=== PATIENT | male | born 1955 | race Caucasian/White ===

== ENCOUNTER 2023-07-23 08:25 | Inpatient (IN) ==
[2023-07-23] MEDS ORDERED: IOPAMIDOL 100 ML BOTTLE IV ONE (08:26)
[2023-07-23] MEDS ORDERED: ONDANSETRON 4 MG/2 ML VIAL IV ONE ×2 (09:11→12:06)
[2023-07-23] MEDS ORDERED: morphine 4 MG/ML VIAL IV ONE ×2 (09:11→12:06)
[2023-07-23] MEDS ORDERED: 0.9 % SODIUM CHLORIDE 1,000 ML IV ONE (09:12)
[2023-07-23 10:07] LABS: Basophils # (Auto) 0.02 K/mcL (0.00-0.30); Basophils % (Auto) 0.1 % (0.0-2.0); Eosinophils # (Auto) 0.01 K/mcL (0.00-0.70); Eosinophils % (Auto) 0 % (0.0-7.0); Hematocrit 44.5 % (40.1-51.0); Hemoglobin 15.2 g/dL (13.7-17.5); Lymphocytes # (Auto) 0.51 K/mcL (1.50-4.80); Lymphocytes % (Auto) 2.5 % (15.5-49.0); Mean Cell Volume 92.7 fL (80.0-100.0); Mean Corpuscular HGB Conc 34.2 g/dL (31.0-36.0); Mean Platelet Volume 9.6 fL (8.8-12.5); Monocytes # (Auto) 1.45 K/mcL (0.10-0.90); Monocytes % (Auto) 7.2 % (1.0-12.0); Neutrophils % (Auto) 89.7 % (38.0-78.0); Platelet Count 217 K/mcL (140-440); Red Cell Distribution Width 12.6 % (11.5-14.5); WBC 20.3 K/mcL (4.5-11.0)
[2023-07-23 10:17] LABS: ALT/SGPT 18 U/L (<40); AST/SGOT 19 U/L (<40); Albumin 4.1 gm/dL (3.2-5.2); Albumin/Globulin Ratio 1.2 (1.0-2.3); Alkaline Phosphatase 73 U/L (39-117); Bilirubin,Total 0.9 mg/dL (0.1-1.0); Blood Urea Nitrogen 14 mg/dL (8-23); Calcium 9.2 mg/dL (8.6-10.4); Carbon Dioxide 23 mmol/L (22-30); Chloride 102 mmol/L (96-108); Globulin 3.3 gm/dL (2.2-3.7); Glomerular Filtration Rate 91; Glucose 129 mg/dL (70-105)
[2023-07-23 11:24] LABS: Appearance,Urine Clear (Clear); Bilirubin,Urine Small mg/dL (Negative); Color,Urine Amber; Culture Indicated,Urine No; Glucose,Urine (UA) Negative (Negative); Ketones,Urine 40 mg/dL (Negative); Leukocyte Esterase,Urine Negative /uL (Negative); Mucus,Urine Many /hpf; Nitrate,Urine Negative (Negative); Protein,Urine Trace mg/dL (Negative); Specific Gravity,Urine >= 1.030 (1.000-1.035); Urine Blood Negative ery/mcL (Negative); Urine RBC 0 /hpf (0-3); Urine Squamous Epithelial Cell 0 /hpf (0-4); Urine WBC 0 /hpf (0-4); Urobilinogen,Urine 0.2 mg/dL
[2023-07-23] MEDS ORDERED: PIPERACILLIN SODIUM/TAZOBACTAM 3.375 GM in DEXTROSE 5% IN WATER 50 ML IV ONE (11:43)
[2023-07-23] MEDS ORDERED: ACETAMINOPHEN 325 MG TABLET PO PRN (13:32)
[2023-07-23] MEDS ORDERED: LACTATED RINGERS 1,000 ML IV SCH (13:45)
[2023-07-23] MEDS: 0.9 % SODIUM CHLORIDE 1,000 ML IV SCH ×2 (15:05→22:25)
[2023-07-23] MEDS: HYDROmorphone 0.5 MG/0.5 ML SYRINGE IV PRN ×2 (15:05→22:34)
[2023-07-23] MEDS: 0.9 % SODIUM CHLORIDE 10 ML SYRINGE IV SCH ×2 (15:06→22:27)
[2023-07-23] MEDS: PIPERACILLIN SODIUM/TAZOBACTAM 3.375 GM in DEXTROSE 5% IN WATER 100 ML IV SCH ×2 (16:19→23:42)
[2023-07-23] MEDS: ACETAMINOPHEN 1,000 MG/100 ML BAG IV PRN (17:56)
[2023-07-23] MEDS ORDERED: SENNOSIDES 1 TABLET PO SCH (21:00)
[2023-07-23] MEDS ORDERED: DOCUSATE SODIUM 100 MG CAPSULE PO SCH (21:00)
[2023-07-24] MEDS: 0.9 % SODIUM CHLORIDE 1,000 ML IV SCH ×6 (03:47→20:14)
[2023-07-24] MEDS: HYDROmorphone 0.5 MG/0.5 ML SYRINGE IV PRN ×3 (03:48→20:14)
[2023-07-24] MEDS: ACETAMINOPHEN 1,000 MG/100 ML BAG IV PRN ×2 (03:48→16:09)
[2023-07-24] MEDS: 0.9 % SODIUM CHLORIDE 10 ML SYRINGE IV SCH ×3 (04:57→20:17)
[2023-07-24 05:22] LABS: Basophils # (Auto) 0.02 K/mcL (0.00-0.30); Basophils % (Auto) 0.1 % (0.0-2.0); Eosinophils # (Auto) 0 K/mcL (0.00-0.70); Eosinophils % (Auto) 0 % (0.0-7.0); Hematocrit 40.5 % (40.1-51.0); Hemoglobin 13.3 g/dL (13.7-17.5); Lymphocytes # (Auto) 0.62 K/mcL (1.50-4.80); Lymphocytes % (Auto) 3.2 % (15.5-49.0); Mean Corpuscular HGB Conc 32.8 g/dL (31.0-36.0); Mean Platelet Volume 9.5 fL (8.8-12.5); Monocytes # (Auto) 0.64 K/mcL (0.10-0.90); Monocytes % (Auto) 3.3 % (1.0-12.0); Neutrophils % (Auto) 92.7 % (38.0-78.0); Platelet Count 181 K/mcL (140-440); RBC 4.22 M/mcL (4.63-6.08); WBC 19.7 K/mcL (4.5-11.0)
[2023-07-24 05:30] LABS: ALT/SGPT 11 U/L (<40); AST/SGOT 14 U/L (<40); Albumin 3.3 gm/dL (3.2-5.2); Albumin/Globulin Ratio 1.1 (1.0-2.3); Alkaline Phosphatase 59 U/L (39-117); Bilirubin,Direct 0.4 mg/dL (<0.3); Blood Urea Nitrogen 15 mg/dL (8-23); Calcium 8.3 mg/dL (8.6-10.4); Carbon Dioxide 22 mmol/L (22-30); Chloride 100 mmol/L (96-108); Glomerular Filtration Rate 87; Glucose 135 mg/dL (70-105); Lactate Dehydrogenase 112 U/L (135-225); Triglycerides 75 mg/dL (<150); Uric Acid 3.6 mg/dL (2.5-8.0)
[2023-07-24] MEDS: PIPERACILLIN SODIUM/TAZOBACTAM 3.375 GM in DEXTROSE 5% IN WATER 100 ML IV SCH ×3 (08:00→23:45)
[2023-07-25] MEDS: 0.9 % SODIUM CHLORIDE 1,000 ML IV SCH ×4 (00:28→12:58)
[2023-07-25] MEDS: ACETAMINOPHEN 1,000 MG/100 ML BAG IV PRN ×2 (03:15→15:41)
[2023-07-25] MEDS: ONDANSETRON 4 MG/2 ML VIAL IV PRN ×2 (03:45→16:51)
[2023-07-25] MEDS: 0.9 % SODIUM CHLORIDE 10 ML SYRINGE IV SCH ×3 (04:20→20:24)
[2023-07-25 07:18] LABS: Basophils # (Auto) 0.01 K/mcL (0.00-0.30); Basophils % (Auto) 0.1 % (0.0-2.0); Eosinophils # (Auto) 0.02 K/mcL (0.00-0.70); Eosinophils % (Auto) 0.1 % (0.0-7.0); Hematocrit 38.5 % (40.1-51.0); Hemoglobin 12.7 g/dL (13.7-17.5); Lymphocytes # (Auto) 0.39 K/mcL (1.50-4.80); Lymphocytes % (Auto) 2.8 % (15.5-49.0); Mean Cell Volume 94.6 fL (80.0-100.0); Mean Platelet Volume 9.7 fL (8.8-12.5); Monocytes # (Auto) 0.39 K/mcL (0.10-0.90); Monocytes % (Auto) 2.8 % (1.0-12.0); Neutrophils % (Auto) 93.7 % (38.0-78.0); Platelet Count 183 K/mcL (140-440); RBC 4.07 M/mcL (4.63-6.08); Red Cell Distribution Width 12.8 % (11.5-14.5); WBC 13.9 K/mcL (4.5-11.0)
[2023-07-25 07:26] LABS: ALT/SGPT 10 U/L (<40); AST/SGOT 14 U/L (<40); Albumin 3.2 gm/dL (3.2-5.2); Alkaline Phosphatase 131 U/L (39-117); Bilirubin,Direct 0.2 mg/dL (<0.3); Bilirubin,Total 0.5 mg/dL (0.1-1.0); Blood Urea Nitrogen 14 mg/dL (8-23); Calcium 8.6 mg/dL (8.6-10.4); Carbon Dioxide 23 mmol/L (22-30); Chloride 103 mmol/L (96-108); Globulin 3.2 gm/dL (2.2-3.7); Glomerular Filtration Rate 96; Glucose 110 mg/dL (70-105); Lactate Dehydrogenase 138 U/L (135-225); Phosphorous 1.5 mg/dL (2.5-4.5); Triglycerides 175 mg/dL (<150); Uric Acid 2.7 mg/dL (2.5-8.0)
[2023-07-25] MEDS: PIPERACILLIN SODIUM/TAZOBACTAM 3.375 GM in DEXTROSE 5% IN WATER 100 ML IV SCH ×2 (07:35→16:16)
[2023-07-25] MEDS: fentaNYL 100 MCG/2 ML VIAL IV PRN (20:24)
[2023-07-26] MEDS: PIPERACILLIN SODIUM/TAZOBACTAM 3.375 GM in DEXTROSE 5% IN WATER 100 ML IV SCH ×4 (00:05→23:23)
[2023-07-26] MEDS: fentaNYL 100 MCG/2 ML VIAL IV PRN ×4 (00:10→20:06)
[2023-07-26] MEDS: ACETAMINOPHEN 1,000 MG/100 ML BAG IV PRN ×2 (03:57→22:43)
[2023-07-26] MEDS: ONDANSETRON 4 MG/2 ML VIAL IV PRN (04:10)
[2023-07-26] MEDS: 0.9 % SODIUM CHLORIDE 10 ML SYRINGE IV SCH ×3 (04:10→20:02)
[2023-07-26 06:29] LABS: Basophils # (Auto) 0.01 K/mcL (0.00-0.30); Basophils % (Auto) 0.1 % (0.0-2.0); Eosinophils # (Auto) 0.03 K/mcL (0.00-0.70); Eosinophils % (Auto) 0.3 % (0.0-7.0); Hematocrit 36.2 % (40.1-51.0); Hemoglobin 12.3 g/dL (13.7-17.5); Lymphocytes # (Auto) 0.43 K/mcL (1.50-4.80); Lymphocytes % (Auto) 3.9 % (15.5-49.0); Mean Cell Volume 93.5 fL (80.0-100.0); Mean Platelet Volume 9.6 fL (8.8-12.5); Monocytes # (Auto) 0.49 K/mcL (0.10-0.90); Monocytes % (Auto) 4.5 % (1.0-12.0); Neutrophils % (Auto) 90.8 % (38.0-78.0); Platelet Count 213 K/mcL (140-440); RBC 3.87 M/mcL (4.63-6.08); Red Cell Distribution Width 12.8 % (11.5-14.5); WBC 10.9 K/mcL (4.5-11.0)
[2023-07-26 06:56] LABS: ALT/SGPT 10 U/L (<40); AST/SGOT 14 U/L (<40); Albumin 3.1 gm/dL (3.2-5.2); Albumin/Globulin Ratio 1.1 (1.0-2.3); Alkaline Phosphatase 72 U/L (39-117); Bilirubin,Direct < 0.2 mg/dL (0-0.3); Bilirubin,Total 0.4 mg/dL (0.1-1.0); Blood Urea Nitrogen 14 mg/dL (8-23); Calcium 8.3 mg/dL (8.6-10.4); Carbon Dioxide 23 mmol/L (22-30); Chloride 103 mmol/L (96-108); Globulin 2.9 gm/dL (2.2-3.7); Glomerular Filtration Rate 103; Glucose 102 mg/dL (70-105); Lactate Dehydrogenase 116 U/L (135-225); Phosphorous 1.9 mg/dL (2.5-4.5); Triglycerides 170 mg/dL (<150); Uric Acid 2.9 mg/dL (2.5-8.0)
[2023-07-26] MEDS ORDERED: IOPAMIDOL 100 ML BOTTLE IV ONE (07:24)
[2023-07-26] MEDS: METOCLOPRAMIDE 10 MG/2 ML VIAL IV SCH ×2 (17:37→23:25)
[2023-07-26] MEDS ORDERED: amLODIPine 10 MG TABLET PO ONE (21:00)
[2023-07-27] MEDS: PIPERACILLIN SODIUM/TAZOBACTAM 3.375 GM in DEXTROSE 5% IN WATER 100 ML IV SCH ×4 (02:12→23:31)
[2023-07-27] MEDS: fentaNYL 100 MCG/2 ML VIAL IV PRN ×3 (02:53→21:09)
[2023-07-27] MEDS: METOCLOPRAMIDE 10 MG/2 ML VIAL IV SCH ×4 (05:23→23:31)
[2023-07-27] MEDS: 0.9 % SODIUM CHLORIDE 10 ML SYRINGE IV SCH ×4 (06:13→21:53)
[2023-07-27] MEDS: ACETAMINOPHEN 1,000 MG/100 ML BAG IV PRN ×2 (06:13→20:04)
[2023-07-27 06:48] LABS: Basophils # (Auto) 0.03 K/mcL (0.00-0.30); Basophils % (Auto) 0.3 % (0.0-2.0); Eosinophils # (Auto) 0.04 K/mcL (0.00-0.70); Eosinophils % (Auto) 0.4 % (0.0-7.0); Hematocrit 40.6 % (40.1-51.0); Hemoglobin 13.7 g/dL (13.7-17.5); Lymphocytes # (Auto) 0.66 K/mcL (1.50-4.80); Lymphocytes % (Auto) 7.2 % (15.5-49.0); Mean Cell Volume 92.5 fL (80.0-100.0); Mean Corpuscular HGB Conc 33.7 g/dL (31.0-36.0); Mean Platelet Volume 9.6 fL (8.8-12.5); Monocytes # (Auto) 0.56 K/mcL (0.10-0.90); Monocytes % (Auto) 6.1 % (1.0-12.0); Neutrophils % (Auto) 85.6 % (38.0-78.0); Platelet Count 262 K/mcL (140-440); RBC 4.39 M/mcL (4.63-6.08); Red Cell Distribution Width 12.6 % (11.5-14.5); WBC 9.2 K/mcL (4.5-11.0)
[2023-07-27 07:19] LABS: ALT/SGPT 16 U/L (<40); AST/SGOT 22 U/L (<40); Albumin 3.5 gm/dL (3.2-5.2); Alkaline Phosphatase 99 U/L (39-117); Bilirubin,Direct < 0.2 mg/dL (0-0.3); Bilirubin,Total 0.4 mg/dL (0.1-1.0); Blood Urea Nitrogen 14 mg/dL (8-23); Calcium 8.9 mg/dL (8.6-10.4); Carbon Dioxide 27 mmol/L (22-30); Chloride 98 mmol/L (96-108); Globulin 3.4 gm/dL (2.2-3.7); Glomerular Filtration Rate 103; Glucose 108 mg/dL (70-105); Lactate Dehydrogenase 150 U/L (135-225); Phosphorous 2.1 mg/dL (2.5-4.5); Triglycerides 190 mg/dL (<150)
[2023-07-27] MEDS: hydrALAZINE 20 MG/ML VIAL IV PRN ×2 (09:04→16:16)
[2023-07-27] MEDS: amLODIPine 10 MG TABLET PO SCH (09:04)
[2023-07-27] MEDS ORDERED: TPN PER PHARMACY IV SCH (12:48)
[2023-07-27] MEDS ORDERED: DEXTROSE 50% 50 ML SYRINGE IV PRN (14:58)
[2023-07-27] MEDS ORDERED: CALCIUM GLUCONATE 5 MEQ, MAGNESIUM SULFATE 8.12 MEQ, SODIUM CHLORIDE 40 MEQ, POTASSIUM ... IV SCH (15:00)
[2023-07-27] MEDS: 0.9 % SODIUM CHLORIDE 1,000 ML IV SCH (17:24)
[2023-07-27] MEDS: INSULIN LISPRO 1 UNIT/0.01 ML UNIT SQ SCH ×2 (17:38→23:41)
[2023-07-28] MEDS: ACETAMINOPHEN 1,000 MG/100 ML BAG IV PRN ×3 (03:26→17:11)
[2023-07-28] MEDS: 0.9 % SODIUM CHLORIDE 1,000 ML IV SCH ×2 (03:35→18:18)
[2023-07-28] MEDS: 0.9 % SODIUM CHLORIDE 10 ML SYRINGE IV SCH ×5 (03:52→21:16)
[2023-07-28] MEDS: METOCLOPRAMIDE 10 MG/2 ML VIAL IV SCH ×4 (05:36→23:47)
[2023-07-28] MEDS: INSULIN LISPRO 1 UNIT/0.01 ML UNIT SQ SCH ×5 (05:42→23:47)
[2023-07-28 06:28] LABS: Basophils # (Auto) 0.03 K/mcL (0.00-0.30); Basophils % (Auto) 0.4 % (0.0-2.0); Eosinophils # (Auto) 0.05 K/mcL (0.00-0.70); Eosinophils % (Auto) 0.6 % (0.0-7.0); Hematocrit 37.3 % (40.1-51.0); Hemoglobin 12.6 g/dL (13.7-17.5); Lymphocytes # (Auto) 0.56 K/mcL (1.50-4.80); Mean Cell Volume 91.9 fL (80.0-100.0); Mean Corpuscular HGB Conc 33.8 g/dL (31.0-36.0); Mean Platelet Volume 9.6 fL (8.8-12.5); Monocytes # (Auto) 0.74 K/mcL (0.10-0.90); Monocytes % (Auto) 9.3 % (1.0-12.0); Neutrophils % (Auto) 81.9 % (38.0-78.0); Platelet Count 255 K/mcL (140-440); RBC 4.06 M/mcL (4.63-6.08); Red Cell Distribution Width 12.7 % (11.5-14.5)
[2023-07-28 07:07] LABS: ALT/SGPT 31 U/L (<40); AST/SGOT 38 U/L (<40); Albumin 3.1 gm/dL (3.2-5.2); Alkaline Phosphatase 81 U/L (39-117); Bilirubin,Direct < 0.2 mg/dL (0-0.3); Bilirubin,Total 0.3 mg/dL (0.1-1.0); Blood Urea Nitrogen 14 mg/dL (8-23); Calcium 8.4 mg/dL (8.6-10.4); Carbon Dioxide 29 mmol/L (22-30); Chloride 100 mmol/L (96-108); Globulin 3.1 gm/dL (2.2-3.7); Glomerular Filtration Rate 103; Glucose 158 mg/dL (70-105); Lactate Dehydrogenase 186 U/L (135-225); Phosphorous 2.1 mg/dL (2.5-4.5); Triglycerides 176 mg/dL (<150); Uric Acid 2.1 mg/dL (2.5-8.0)
[2023-07-28] MEDS: PIPERACILLIN SODIUM/TAZOBACTAM 3.375 GM in DEXTROSE 5% IN WATER 100 ML IV SCH ×3 (08:46→23:47)
[2023-07-28] MEDS: amLODIPine 10 MG TABLET PO SCH (08:52)
[2023-07-28] MEDS ORDERED: CALCIUM GLUCONATE 5 MEQ, MAGNESIUM SULFATE 8.12 MEQ, SODIUM CHLORIDE 40 MEQ, POTASSIUM ... IV SCH (15:00)
[2023-07-28] MEDS: fentaNYL 100 MCG/2 ML VIAL IV PRN ×3 (15:03→22:32)
[2023-07-28] MEDS: FAT EMULSION 20% 250 ML IV SCH (15:20)
[2023-07-28] MEDS: hydrALAZINE 20 MG/ML VIAL IV PRN (19:45)
[2023-07-29] MEDS: ACETAMINOPHEN 1,000 MG/100 ML BAG IV PRN ×3 (01:39→18:00)
[2023-07-29] MEDS: fentaNYL 100 MCG/2 ML VIAL IV PRN ×5 (03:25→21:10)
[2023-07-29] MEDS: METOCLOPRAMIDE 10 MG/2 ML VIAL IV SCH ×4 (05:56→23:07)
[2023-07-29] MEDS: INSULIN LISPRO 1 UNIT/0.01 ML UNIT SQ SCH ×4 (05:59→23:08)
[2023-07-29] MEDS: 0.9 % SODIUM CHLORIDE 10 ML SYRINGE IV SCH ×3 (05:59→21:11)
[2023-07-29 06:50] LABS: Basophils # (Auto) 0.03 K/mcL (0.00-0.30); Basophils % (Auto) 0.3 % (0.0-2.0); Eosinophils # (Auto) 0.06 K/mcL (0.00-0.70); Eosinophils % (Auto) 0.6 % (0.0-7.0); Hematocrit 37.8 % (40.1-51.0); Hemoglobin 12.9 g/dL (13.7-17.5); Lymphocytes # (Auto) 0.72 K/mcL (1.50-4.80); Lymphocytes % (Auto) 7.7 % (15.5-49.0); Mean Cell Volume 92.4 fL (80.0-100.0); Mean Corpuscular HGB Conc 34.1 g/dL (31.0-36.0); Mean Platelet Volume 9.4 fL (8.8-12.5); Monocytes # (Auto) 0.82 K/mcL (0.10-0.90); Monocytes % (Auto) 8.8 % (1.0-12.0); Neutrophils % (Auto) 81.7 % (38.0-78.0); Platelet Count 281 K/mcL (140-440); RBC 4.09 M/mcL (4.63-6.08); WBC 9.3 K/mcL (4.5-11.0)
[2023-07-29] MEDS: PANTOPRAZOLE 40 MG VIAL IV SCH ×2 (07:20→16:23)
[2023-07-29 07:23] LABS: ALT/SGPT 60 U/L (<40); AST/SGOT 68 U/L (<40); Albumin 3.2 gm/dL (3.2-5.2); Alkaline Phosphatase 103 U/L (39-117); Bilirubin,Direct < 0.2 mg/dL (0-0.3); Bilirubin,Total 0.3 mg/dL (0.1-1.0); Blood Urea Nitrogen 15 mg/dL (8-23); Calcium 8.6 mg/dL (8.6-10.4); Carbon Dioxide 27 mmol/L (22-30); Chloride 102 mmol/L (96-108); Globulin 3.3 gm/dL (2.2-3.7); Glomerular Filtration Rate 111; Glucose 168 mg/dL (70-105); Lactate Dehydrogenase 187 U/L (135-225); Phosphorous 2.7 mg/dL (2.5-4.5); Triglycerides 148 mg/dL (<150); Uric Acid 1.2 mg/dL (2.5-8.0)
[2023-07-29] MEDS: 0.9 % SODIUM CHLORIDE 1,000 ML IV SCH ×4 (07:23→23:08)
[2023-07-29] MEDS: PIPERACILLIN SODIUM/TAZOBACTAM 3.375 GM in DEXTROSE 5% IN WATER 100 ML IV SCH ×3 (07:27→23:08)
[2023-07-29] MEDS: amLODIPine 10 MG TABLET PO SCH (08:45)
[2023-07-29] MEDS: hydrALAZINE 20 MG/ML VIAL IV PRN ×2 (11:52→21:17)
[2023-07-29] MEDS: HYDROmorphone 0.5 MG/0.5 ML SYRINGE IV PRN ×3 (14:18→23:07)
[2023-07-29] MEDS: ONDANSETRON 4 MG/2 ML VIAL IV PRN (14:23)
[2023-07-29] MEDS: CALCIUM GLUCONATE IV SCH (15:34)
[2023-07-29] MEDS: MAGNESIUM SULFATE IV SCH (15:34)
[2023-07-29] MEDS: SODIUM CHLORIDE IV SCH (15:34)
[2023-07-29] MEDS: [UNRECOGNIZED DRUG - OTHER] IV SCH (15:34)
[2023-07-29] MEDS: PYRIDOSTIGMINE BROMIDE 10 MG/2 ML AMPUL IV SCH ×2 (15:51→21:11)
[2023-07-30] MEDS: fentaNYL 100 MCG/2 ML VIAL IV PRN ×4 (01:29→21:05)
[2023-07-30] MEDS: HYDROmorphone 0.5 MG/0.5 ML SYRINGE IV PRN ×4 (03:19→23:13)
[2023-07-30] MEDS: PYRIDOSTIGMINE BROMIDE 10 MG/2 ML AMPUL IV SCH ×5 (03:20→21:24)
[2023-07-30] MEDS: hydrALAZINE 20 MG/ML VIAL IV PRN ×2 (03:28→18:46)
[2023-07-30] MEDS: ACETAMINOPHEN 1,000 MG/100 ML BAG IV PRN ×2 (05:28→11:55)
[2023-07-30] MEDS: METOCLOPRAMIDE 10 MG/2 ML VIAL IV SCH ×4 (05:28→23:51)
[2023-07-30] MEDS: 0.9 % SODIUM CHLORIDE 10 ML SYRINGE IV SCH ×3 (05:34→20:55)
[2023-07-30] MEDS: INSULIN LISPRO 1 UNIT/0.01 ML UNIT SQ SCH ×4 (05:34→23:52)
[2023-07-30 06:32] LABS: Basophils # (Auto) 0.05 K/mcL (0.00-0.30); Basophils % (Auto) 0.5 % (0.0-2.0); Eosinophils # (Auto) 0.29 K/mcL (0.00-0.70); Eosinophils % (Auto) 3.1 % (0.0-7.0); Hematocrit 38.3 % (40.1-51.0); Lymphocytes % (Auto) 7.5 % (15.5-49.0); Mean Cell Volume 93.4 fL (80.0-100.0); Mean Corpuscular HGB Conc 33.9 g/dL (31.0-36.0); Mean Platelet Volume 9.5 fL (8.8-12.5); Monocytes % (Auto) 8.6 % (1.0-12.0); Neutrophils % (Auto) 78.8 % (38.0-78.0); Platelet Count 283 K/mcL (140-440); Red Cell Distribution Width 13.2 % (11.5-14.5); WBC 9.4 K/mcL (4.5-11.0)
[2023-07-30 06:46] LABS: ALT/SGPT 123 U/L (<40); AST/SGOT 114 U/L (<40); Albumin 3.3 gm/dL (3.2-5.2); Albumin/Globulin Ratio 0.9 (1.0-2.3); Alkaline Phosphatase 139 U/L (39-117); Bilirubin,Direct < 0.2 mg/dL (0-0.3); Bilirubin,Total 0.4 mg/dL (0.1-1.0); Blood Urea Nitrogen 18 mg/dL (8-23); Calcium 8.7 mg/dL (8.6-10.4); Carbon Dioxide 24 mmol/L (22-30); Chloride 106 mmol/L (96-108); Globulin 3.5 gm/dL (2.2-3.7); Glomerular Filtration Rate 103; Glucose 150 mg/dL (70-105); Lactate Dehydrogenase 665 U/L (135-225); Phosphorous 2.9 mg/dL (2.5-4.5); Triglycerides 193 mg/dL (<150); Uric Acid 0.7 mg/dL (2.5-8.0)
[2023-07-30] MEDS: 0.9 % SODIUM CHLORIDE 1,000 ML IV SCH ×4 (06:46→20:29)
[2023-07-30] MEDS: PANTOPRAZOLE 40 MG VIAL IV SCH ×2 (07:39→17:19)
[2023-07-30] MEDS: PIPERACILLIN SODIUM/TAZOBACTAM 3.375 GM in DEXTROSE 5% IN WATER 100 ML IV SCH ×3 (08:23→23:50)
[2023-07-30] MEDS: amLODIPine 10 MG TABLET PO SCH (08:23)
[2023-07-30] MEDS ORDERED: [UNRECOGNIZED DRUG - OTHER] IV SCH (15:00)
[2023-07-30] MEDS ORDERED: SODIUM CHLORIDE IV SCH (15:00)
[2023-07-30] MEDS ORDERED: MAGNESIUM SULFATE IV SCH (15:00)
[2023-07-30] MEDS ORDERED: CALCIUM GLUCONATE IV SCH (15:00)
[2023-07-30] MEDS: MAGNESIUM SULFATE IV SCH (15:22)
[2023-07-30] MEDS: [UNRECOGNIZED DRUG - OTHER] IV SCH (15:22)
[2023-07-30] MEDS: SODIUM CHLORIDE IV SCH (15:22)
[2023-07-30] MEDS: CALCIUM GLUCONATE IV SCH (15:22)
[2023-07-30] MEDS: ONDANSETRON 4 MG/2 ML VIAL IV PRN (17:26)
[2023-07-31] MEDS: fentaNYL 100 MCG/2 ML VIAL IV PRN ×4 (01:05→21:04)
[2023-07-31] MEDS: 0.9 % SODIUM CHLORIDE 1,000 ML IV SCH ×5 (01:11→20:55)
[2023-07-31] MEDS: HYDROmorphone 0.5 MG/0.5 ML SYRINGE IV PRN ×3 (03:51→19:07)
[2023-07-31] MEDS: PYRIDOSTIGMINE BROMIDE 10 MG/2 ML AMPUL IV SCH ×4 (03:51→21:10)
[2023-07-31] MEDS: INSULIN LISPRO 1 UNIT/0.01 ML UNIT SQ SCH ×4 (05:29→23:18)
[2023-07-31] MEDS: METOCLOPRAMIDE 10 MG/2 ML VIAL IV SCH ×4 (05:29→23:09)
[2023-07-31] MEDS: 0.9 % SODIUM CHLORIDE 10 ML SYRINGE IV SCH ×3 (05:30→21:16)
[2023-07-31] MEDS: PANTOPRAZOLE 40 MG VIAL IV SCH ×2 (07:02→16:33)
[2023-07-31] MEDS: hydrALAZINE 20 MG/ML VIAL IV PRN ×3 (07:03→23:08)
[2023-07-31] MEDS: PIPERACILLIN SODIUM/TAZOBACTAM 3.375 GM in DEXTROSE 5% IN WATER 100 ML IV SCH ×3 (08:08→23:08)
[2023-07-31] MEDS: amLODIPine 10 MG TABLET PO SCH (08:17)
[2023-07-31] MEDS ORDERED: [UNRECOGNIZED DRUG - OTHER] IV SCH (15:00)
[2023-07-31] MEDS ORDERED: MAGNESIUM SULFATE IV SCH ×3 (15:00)
[2023-07-31] MEDS ORDERED: CALCIUM GLUCONATE IV SCH ×3 (15:00)
[2023-07-31] MEDS ORDERED: [UNRECOGNIZED DRUG - OTHER] IV SCH ×2 (15:00)
[2023-07-31] MEDS ORDERED: SODIUM CHLORIDE IV SCH ×3 (15:00)
[2023-07-31] MEDS: FAT EMULSION 20% 250 ML IV SCH (16:12)
[2023-08-01] MEDS: 0.9 % SODIUM CHLORIDE 1,000 ML IV SCH ×5 (02:25→23:32)
[2023-08-01] MEDS ORDERED: MAGNESIUM SULFATE IV SCH (03:00)
[2023-08-01] MEDS ORDERED: [UNRECOGNIZED DRUG - OTHER] IV SCH (03:00)
[2023-08-01] MEDS ORDERED: SODIUM CHLORIDE IV SCH (03:00)
[2023-08-01] MEDS ORDERED: CALCIUM GLUCONATE IV SCH (03:00)
[2023-08-01] MEDS: HYDROmorphone 0.5 MG/0.5 ML SYRINGE IV PRN (03:23)
[2023-08-01] MEDS: PYRIDOSTIGMINE BROMIDE 10 MG/2 ML AMPUL IV SCH ×4 (03:29→21:28)
[2023-08-01] MEDS: METOCLOPRAMIDE 10 MG/2 ML VIAL IV SCH ×4 (05:14→23:49)
[2023-08-01] MEDS: INSULIN LISPRO 1 UNIT/0.01 ML UNIT SQ SCH ×4 (05:17→23:49)
[2023-08-01] MEDS: 0.9 % SODIUM CHLORIDE 10 ML SYRINGE IV SCH ×3 (05:17→21:30)
[2023-08-01] MEDS: PIPERACILLIN SODIUM/TAZOBACTAM 3.375 GM in DEXTROSE 5% IN WATER 100 ML IV SCH ×3 (08:10→23:54)
[2023-08-01] MEDS: PANTOPRAZOLE 40 MG VIAL IV SCH ×2 (08:14→16:25)
[2023-08-01] MEDS: amLODIPine 10 MG TABLET PO SCH (08:15)
[2023-08-01 11:06] LABS: ALT/SGPT 161 U/L (<40); AST/SGOT 72 U/L (<40); Albumin 3.4 gm/dL (3.2-5.2); Alkaline Phosphatase 119 U/L (39-117); Bilirubin,Direct < 0.2 mg/dL (0-0.3); Bilirubin,Total 0.5 mg/dL (0.1-1.0); Blood Urea Nitrogen 14 mg/dL (8-23); Calcium 8.6 mg/dL (8.6-10.4); Carbon Dioxide 22 mmol/L (22-30); Chloride 101 mmol/L (96-108); Globulin 3.5 gm/dL (2.2-3.7); Glomerular Filtration Rate 103; Glucose 120 mg/dL (70-105); Lactate Dehydrogenase 210 U/L (135-225); Triglycerides 137 mg/dL (<150)
[2023-08-01] MEDS: MAGNESIUM HYDROXIDE 30 ML ORAL.SUSP PO SCH ×3 (13:36→21:28)
[2023-08-01] MEDS: CALCIUM GLUCONATE IV SCH (16:13)
[2023-08-01] MEDS: SODIUM CHLORIDE IV SCH (16:13)
[2023-08-01] MEDS: [UNRECOGNIZED DRUG - OTHER] IV SCH (16:13)
[2023-08-01] MEDS: MAGNESIUM SULFATE IV SCH (16:13)
[2023-08-01] MEDS: hydrALAZINE 20 MG/ML VIAL IV PRN (22:50)
[2023-08-02] MEDS: MAGNESIUM HYDROXIDE 30 ML ORAL.SUSP PO SCH (01:55)
[2023-08-02] MEDS: PYRIDOSTIGMINE BROMIDE 10 MG/2 ML AMPUL IV SCH ×4 (03:30→20:43)
[2023-08-02] MEDS: 0.9 % SODIUM CHLORIDE 1,000 ML IV SCH ×4 (04:20→15:53)
[2023-08-02] MEDS: INSULIN LISPRO 1 UNIT/0.01 ML UNIT SQ SCH ×4 (05:28→23:19)
[2023-08-02] MEDS: 0.9 % SODIUM CHLORIDE 10 ML SYRINGE IV SCH ×4 (05:29→20:43)
[2023-08-02] MEDS: METOCLOPRAMIDE 10 MG/2 ML VIAL IV SCH ×4 (05:29→23:19)
[2023-08-02] MEDS: PANTOPRAZOLE 40 MG VIAL IV SCH ×2 (08:15→17:20)
[2023-08-02] MEDS: PIPERACILLIN SODIUM/TAZOBACTAM 3.375 GM in DEXTROSE 5% IN WATER 100 ML IV SCH ×3 (08:17→23:19)
[2023-08-02] MEDS: amLODIPine 10 MG TABLET PO SCH (08:29)
[2023-08-02] MEDS: FAT EMULSION 20% 250 ML IV SCH (15:40)
[2023-08-02] MEDS: MAGNESIUM SULFATE IV SCH (15:41)
[2023-08-02] MEDS: [UNRECOGNIZED DRUG - OTHER] IV SCH (15:41)
[2023-08-02] MEDS: SODIUM CHLORIDE IV SCH (15:41)
[2023-08-02] MEDS: CALCIUM GLUCONATE IV SCH (15:41)
[2023-08-03] MEDS: PYRIDOSTIGMINE BROMIDE 10 MG/2 ML AMPUL IV SCH ×4 (04:29→20:31)
[2023-08-03] MEDS: METOCLOPRAMIDE 10 MG/2 ML VIAL IV SCH ×4 (05:30→23:20)
[2023-08-03] MEDS: INSULIN LISPRO 1 UNIT/0.01 ML UNIT SQ SCH ×4 (05:30→23:30)
[2023-08-03] MEDS: 0.9 % SODIUM CHLORIDE 10 ML SYRINGE IV SCH ×3 (05:30→20:26)
[2023-08-03 05:44] LABS: ALT/SGPT 114 U/L (<40); AST/SGOT 32 U/L (<40); Albumin 3.4 gm/dL (3.2-5.2); Albumin/Globulin Ratio 0.9 (1.0-2.3); Alkaline Phosphatase 116 U/L (39-117); Bilirubin,Direct < 0.2 mg/dL (0-0.3); Bilirubin,Total 0.3 mg/dL (0.1-1.0); Blood Urea Nitrogen 16 mg/dL (8-23); Calcium 9.1 mg/dL (8.6-10.4); Carbon Dioxide 20 mmol/L (22-30); Chloride 105 mmol/L (96-108); Globulin 3.8 gm/dL (2.2-3.7); Glomerular Filtration Rate 96; Glucose 118 mg/dL (70-105); Lactate Dehydrogenase 170 U/L (135-225); Phosphorous 4.2 mg/dL (2.5-4.5); Triglycerides 121 mg/dL (<150); Uric Acid 1.7 mg/dL (2.5-8.0)
[2023-08-03 06:02] LABS: Basophils # (Auto) 0.07 K/mcL (0.00-0.30); Basophils % (Auto) 0.7 % (0.0-2.0); Eosinophils # (Auto) 0.56 K/mcL (0.00-0.70); Eosinophils % (Auto) 5.3 % (0.0-7.0); Hematocrit 41.1 % (40.1-51.0); Hemoglobin 13.4 g/dL (13.7-17.5); Lymphocytes # (Auto) 0.92 K/mcL (1.50-4.80); Lymphocytes % (Auto) 8.7 % (15.5-49.0); Mean Corpuscular HGB Conc 32.6 g/dL (31.0-36.0); Mean Platelet Volume 9.5 fL (8.8-12.5); Monocytes # (Auto) 1.37 K/mcL (0.10-0.90); Neutrophils % (Auto) 69.7 % (38.0-78.0); Platelet Count 355 K/mcL (140-440); RBC 4.28 M/mcL (4.63-6.08); Red Cell Distribution Width 13.4 % (11.5-14.5); WBC 10.6 K/mcL (4.5-11.0)
[2023-08-03] MEDS: PANTOPRAZOLE 40 MG VIAL IV SCH ×2 (07:41→17:30)
[2023-08-03] MEDS: PIPERACILLIN SODIUM/TAZOBACTAM 3.375 GM in DEXTROSE 5% IN WATER 100 ML IV SCH ×3 (07:41→23:19)
[2023-08-03] MEDS: amLODIPine 10 MG TABLET PO SCH (08:36)
[2023-08-03] MEDS: 0.9 % SODIUM CHLORIDE 1,000 ML IV SCH ×2 (08:37→11:23)
[2023-08-03] MEDS ORDERED: CALCIUM GLUCONATE IV SCH (15:00)
[2023-08-03] MEDS ORDERED: MAGNESIUM SULFATE IV SCH (15:00)
[2023-08-03] MEDS ORDERED: [UNRECOGNIZED DRUG - OTHER] IV SCH (15:00)
[2023-08-03] MEDS ORDERED: SODIUM CHLORIDE IV SCH (15:00)
[2023-08-04] MEDS: PYRIDOSTIGMINE BROMIDE 10 MG/2 ML AMPUL IV SCH ×4 (02:13→18:10)
[2023-08-04] MEDS: 0.9 % SODIUM CHLORIDE 10 ML SYRINGE IV SCH ×4 (03:05→20:24)
[2023-08-04] MEDS: 0.9 % SODIUM CHLORIDE 1,000 ML IV SCH ×2 (03:14→08:15)
[2023-08-04] MEDS: METOCLOPRAMIDE 10 MG/2 ML VIAL IV SCH ×4 (05:29→23:30)
[2023-08-04] MEDS: INSULIN LISPRO 1 UNIT/0.01 ML UNIT SQ SCH ×3 (05:35→19:02)
[2023-08-04 05:51] LABS: ALT/SGPT 85 U/L (<40); AST/SGOT 26 U/L (<40); Albumin 3.4 gm/dL (3.2-5.2); Albumin/Globulin Ratio 0.9 (1.0-2.3); Alkaline Phosphatase 104 U/L (39-117); Bilirubin,Direct < 0.2 mg/dL (0-0.3); Bilirubin,Total 0.4 mg/dL (0.1-1.0); Blood Urea Nitrogen 15 mg/dL (8-23); Calcium 9.2 mg/dL (8.6-10.4); Carbon Dioxide 21 mmol/L (22-30); Chloride 104 mmol/L (96-108); Globulin 3.9 gm/dL (2.2-3.7); Glomerular Filtration Rate 111; Glucose 114 mg/dL (70-105); Lactate Dehydrogenase 185 U/L (135-225); Phosphorous 4.2 mg/dL (2.5-4.5); Triglycerides 163 mg/dL (<150); Uric Acid 2.4 mg/dL (2.5-8.0)
[2023-08-04 06:20] LABS: Basophils # (Auto) 0.11 K/mcL (0.00-0.30); Basophils % (Auto) 1.1 % (0.0-2.0); Eosinophils # (Auto) 0.44 K/mcL (0.00-0.70); Eosinophils % (Auto) 4.3 % (0.0-7.0); Hematocrit 41.1 % (40.1-51.0); Hemoglobin 13.3 g/dL (13.7-17.5); Lymphocytes % (Auto) 7.8 % (15.5-49.0); Mean Cell Volume 96.9 fL (80.0-100.0); Mean Corpuscular HGB Conc 32.4 g/dL (31.0-36.0); Mean Platelet Volume 9.5 fL (8.8-12.5); Monocytes # (Auto) 1.18 K/mcL (0.10-0.90); Monocytes % (Auto) 11.4 % (1.0-12.0); Neutrophils % (Auto) 73.2 % (38.0-78.0); Platelet Count 385 K/mcL (140-440); RBC 4.24 M/mcL (4.63-6.08); Red Cell Distribution Width 13.3 % (11.5-14.5); WBC 10.3 K/mcL (4.5-11.0)
[2023-08-04] MEDS: PANTOPRAZOLE 40 MG VIAL IV SCH ×2 (08:14→18:10)
[2023-08-04] MEDS: amLODIPine 10 MG TABLET PO SCH (08:14)
[2023-08-04] MEDS: PIPERACILLIN SODIUM/TAZOBACTAM 3.375 GM in DEXTROSE 5% IN WATER 100 ML IV SCH ×3 (08:15→23:30)
[2023-08-05] MEDS: METOCLOPRAMIDE 10 MG/2 ML VIAL IV SCH ×2 (05:28→11:40)
[2023-08-05] MEDS: 0.9 % SODIUM CHLORIDE 10 ML SYRINGE IV SCH (05:29)
[2023-08-05 07:10] LABS: Basophils # (Auto) 0.15 K/mcL (0.00-0.30); Basophils % (Auto) 1.4 % (0.0-2.0); Eosinophils # (Auto) 0.34 K/mcL (0.00-0.70); Eosinophils % (Auto) 3.3 % (0.0-7.0); Hematocrit 42.1 % (40.1-51.0); Hemoglobin 13.3 g/dL (13.7-17.5); Lymphocytes # (Auto) 0.94 K/mcL (1.50-4.80); Mean Cell Volume 98.1 fL (80.0-100.0); Mean Corpuscular HGB Conc 31.6 g/dL (31.0-36.0); Mean Platelet Volume 10.2 fL (8.8-12.5); Monocytes % (Auto) 11.5 % (1.0-12.0); Neutrophils % (Auto) 73.5 % (38.0-78.0); Platelet Count 354 K/mcL (140-440); RBC 4.29 M/mcL (4.63-6.08); Red Cell Distribution Width 13.3 % (11.5-14.5); WBC 10.4 K/mcL (4.5-11.0)
[2023-08-05] MEDS: PIPERACILLIN SODIUM/TAZOBACTAM 3.375 GM in DEXTROSE 5% IN WATER 100 ML IV SCH (07:30)
[2023-08-05] MEDS: PANTOPRAZOLE 40 MG VIAL IV SCH (07:30)
[2023-08-05] MEDS: amLODIPine 10 MG TABLET PO SCH (08:41)
== END 2023-08-05 14:19 | disposition home or self-care (01) ==
LOC: ED 08:25 → MEDSUR 14:32
PROVIDERS: ADMIT Family Medicine Adult Medicine; ATTEND Family Medicine Adult Medicine